=== PATIENT | male | born 1970 | race Caucasian/White ===

== ENCOUNTER 2018-10-08 17:44 | Emergency (ER) | payer BC ==
[2018-10-08] MEDS ORDERED: ASPIRIN 81 MG TABLET, CHEWABLE PO ONE ×2 (18:14→18:48)
[2018-10-08] MEDS ORDERED: ONDANSETRON HCL INJ/PF 4 MG/2 ML SDV IV ONE (18:15)
[2018-10-08] MEDS ORDERED: NORMAL SALINE 1000 ML 1,000 ML IV ONE (18:15)
[2018-10-08] MEDS ORDERED: MORPHINE SULFATE 10 MG/ML INJ IV ONE (18:15)
--- NOTE | 2018-10-08 18:17 | ER Document Report ---
ED Medical Screen (RME) - General Chief Complaint: Breathing Difficulty Stated Complaint: SHORTNESS OF BREATH, CHEST UNEASY FEELING Time Seen by Provider: 10/08/18 18:08 Mode of Arrival: Ambulatory Information source: Patient Notes: 48-year-old's male presents emergency department with complaints of nausea, vomiting, right-sided abdominal pain. Patient states he has a history of ETOH abuse. He stopped drinking from until Tuesday. He consumed alcohol on Tuesday. He states that he drank a large amount and stopped on . He states that he then went into withdrawals. He states that he had the DTs , Tuesday, Tuesday. Patient states that today he is only has nausea. He denies any vomiting, diarrhea, constipation. He states that when he arrived in the emergency department the walk from the parking lot to triage caused him to feel short of breath and have chest pain. He states that he is having a dull ache in the left chest. He states that it radiates to the armpit. He took 2 nitro and this helped with the pain. He has a history of CAD with stent placement. I have greeted and performed a rapid initial assessment of this patient. A comprehensive ED assessment and evaluation of the patient, analysis of test results and completion of the medical decision making process will be conducted by additional ED providers. PHYSICAL EXAMINATION: GENERAL: Ill appearing. HEAD: Atraumatic, normocephalic. EYES: Pupils equal round extraocular movements intact, conjunctiva are normal. ENT: Nares patent NECK: Normal range of motion LUNGS: No respiratory distress Musculoskeletal: Normal range of motion NEUROLOGICAL: Normal speech, normal gait. TRAVEL OUTSIDE OF THE [place] IN LAST 30 DAYS: No - Related Data Allergies/Adverse Reactions: No Known Allergies Allergy (Unverified 10/08/18 17:48) Physical Exam - Vital signs Vitals: Temp Pulse Resp BP Pulse Ox 98.1 F 95 16 177/99 H 100 10/08/18 18:03 10/08/18 18:03 10/08/18 18:03 10/08/18 18:03 10/08/18 18:03 Course - Vital Signs Vital signs: Temp Pulse Resp BP Pulse Ox 98.1 F 95 16 177/99 H 100 10/08/18 18:03 10/08/18 18:03 10/08/18 18:03 10/08/18 18:06 10/08/18 18:03
--- NOTE | 2018-10-08 18:53 | ER Document Report ---
ED Medical Screen (RME) - General Chief Complaint: Breathing Difficulty Stated Complaint: SHORTNESS OF BREATH, CHEST UNEASY FEELING Time Seen by Provider: 10/08/18 18:08 Mode of Arrival: Ambulatory Information source: Patient Notes: 48-year-old male presents emergency department with complaints of shortness of breath and chest pain. Patient states that he is in town from [place] visiting his daughter who just gave . He states that he took a 12-hour car ride a week ago to arrive here. He states that today he began having some shortness of breath, diaphoresis, and "chest stinging" after giving himself a testosterone injection. He gives them to himself once a week. He feels more stressed than usual because there is a lot of family around. There is been a lot of conflicts. Patient has a history of diabetes but denies any hypertension, hyperlipidemia, coronary artery disease. He does have a family history of coronary artery disease. Patient states that his primary care physician wants him to get stress test. I have greeted and performed a rapid initial assessment of this patient. A comprehensive ED assessment and evaluation of the patient, analysis of test results and completion of the medical decision making process will be conducted by additional ED providers. PHYSICAL EXAMINATION: GENERAL: Well-appearing HEAD: Atraumatic, normocephalic. EYES: Pupils equal round extraocular movements intact, conjunctiva are normal. ENT: Nares patent NECK: Normal range of motion LUNGS: No respiratory distress Musculoskeletal: Normal range of motion NEUROLOGICAL: Normal speech, normal gait. PSYCH: Normal mood, normal affect. SKIN: Warm, Dry, normal turgor, no rashes or lesions noted. TRAVEL OUTSIDE OF THE [place] IN LAST 30 DAYS: No - Related Data Allergies/Adverse Reactions: No Known Allergies Allergy (Unverified 10/08/18 17:48) Physical Exam - Vital signs Vitals: Temp Pulse Resp BP Pulse Ox 98.1 F 95 16 177/99 H 100 10/08/18 18:03 10/08/18 18:03 10/08/18 18:03 10/08/18 18:03 10/08/18 18:03 Course - Vital Signs Vital signs: Temp Pulse Resp BP Pulse Ox 98.1 F 95 16 177/99 H 100 10/08/18 18:03 10/08/18 18:03 10/08/18 18:03 10/08/18 18:06 10/08/18 18:03
[2018-10-08 19:08] LABS: ABSOLUTE BASOPHILS # (AUTO) 0.1 10^3/uL (0.0-0.2); ABSOLUTE EOSINOPHILS # (AUTO) 0.3 10^3/uL (0.0-0.6); ABSOLUTE LYMPHOCYTES (AUTO) 2.7 10^3/uL (0.5-4.7); ABSOLUTE MONOCYTES (AUTO) 0.9 10^3/uL (0.1-1.4); EOSINOPHILS % (AUTO) 2.8 % (0-6); HEMATOCRIT 46.1 % (37.9-51.0); HEMOGLOBIN 15.9 g/dL (13.5-17.0); LYMPHOCYTES % (AUTO) 27.2 % (13-45); MEAN CORPUSCULAR HEMOGLOBIN 31.2 pg (27.0-33.4); MEAN CORPUSCULAR HGB CONC 34.6 g/dL (32.0-36.0); MEAN CORPUSCULAR VOLUME 90 fl (80-97); MONOCYTES % (AUTO) 9.2 % (3-13); PLATELET COUNT 229 10^3/uL (150-450); RED CELL DISTRIBUTION WIDTH 13.5 % (11.5-14.0); SEGMENTED NEUTROPHILS % (AUTO) 59.8 % (42-78); TOTAL CELLS COUNTED % (AUTO) 100 %
[2018-10-08 19:29] LABS: ALANINE AMINOTRANSFERASE 47 U/L (21-72); ALBUMIN 4.2 g/dL (3.5-5.0); ALKALINE PHOSPHATASE 74 U/L (38-126); ANION GAP 9 (5-19); ASPARTATE AMINO TRANSFERASE 40 U/L (17-59); BILIRUBIN,DIRECT 0.2 mg/dL (0.0-0.4); BILIRUBIN,TOTAL 0.6 mg/dL (0.2-1.3); BLOOD UREA NITROGEN 13 mg/dL (7-20); CALCIUM 9.4 mg/dL (8.4-10.2); CARBON DIOXIDE 31 mmol/L (22-30); CHLORIDE 100 mmol/L (98-107); GLUCOSE 157 mg/dL (75-110); POTASSIUM 4.3 mmol/L (3.6-5.0); SODIUM 139.7 mmol/L (137-145); TOTAL PROTEIN 7.3 g/dL (6.3-8.2)
--- NOTE | 2018-10-08 19:35 | ER Document Report ---
ED General - General Chief Complaint: Breathing Difficulty Stated Complaint: SHORTNESS OF BREATH, CHEST UNEASY FEELING Time Seen by Provider: 10/08/18 18:08 Mode of Arrival: Ambulatory Notes: Patient is a 48-year-old male that comes to the emergency department for chief complaint of shortness of breath and chest pain. He states that he has been having more noticeable shortness of breath for the past couple of days i ntermittently, he states that he had a stinging sensation over the left mid to right chest after he took his testosterone shot, he states that he also has developed heartburn. He denies fever or chills, he did travel long distance 1 week ago, lives in [place], came here for family. Denies any new lower extremity swelling, denies history of blood clot, denies smoking, denies family history of blood clot. He states he has not taken his insulin over the past 2 days, he has insulin-dependent type 2 diabetes, he is also been out of his current medication omeprazole. Positive family history of CAD, none personally, he smokes marijuana but denies any other street drugs or history of street drug s, he states he had a negative stress test 2 years ago. TRAVEL OUTSIDE OF THE [place] IN LAST 30 DAYS: No - Related Data Allergies/Adverse Reactions: No Known Allergies Allergy (Unverified 10/08/18 17:48) Past Medical History - General Information source: Patient - Social History Smoking Status: Former Smoker Chew tobacco use (# tins/day): No Frequency of alcohol use: Rare Drug Abuse: None Lives with: Family Family History: Reviewed & Not Pertinent Patient has suicidal ideation: No Patient has homicidal ideation: No Endocrine Medical History: Reports: Hx Diabetes Mellitus Type 2 - Insulin Dependent-humalog and long acting Renal/ Medical History: Denies: Hx Peritoneal Dialysis Musculoskeletal Medical History: Reports Hx Arthritis - arthritis Past Surgical History: Reports: Hx Orthopedic Surgery - left leg, back - Immunizations Immunizations up to date: Yes Hx Diphtheria, Pertussis, Tetanus Vaccination: Yes Review of Systems - Review of Systems Constitutional: No symptoms reported EENT: No symptoms reported Cardiovascular: See HPI Respiratory: See HPI Gastrointestinal: See HPI Genitourinary: No symptoms reported Male Genitourinary: No symptoms reported Musculoskeletal: No symptoms reported Skin: No symptoms reported Hematologic/Lymphatic: No symptoms reported Neurological/Psychological: No symptoms reported Physical Exam - Vital signs Vitals: Temp Pulse Resp BP Pulse Ox 98.1 F 95 16 177/99 H 100 10/08/18 18:03 10/08/18 18:03 10/08/18 18:03 10/08/18 18:03 10/08/18 18:03 - Notes Notes: GENERAL: Alert, interacts well. No acute distress. HEAD: Normocephalic, atraumatic. EYES: Pupils equal, round, and reactive to light. Extraocular movements intact. ENT: Oral mucosa moist, tongue midline. Oropharynx unremarkable. Airway patent. Nares patent, no nasal septal hematoma, TM's intact. NECK: Full range of motion. Supple. Trachea midline. LUNGS: Clear to auscultation bilaterally, no wheezes, rales, or rhonchi. No respiratory distress. HEART: Regular rate and rhythm. No murmur ABDOMEN: Soft, non-tender. Non-distended. Bowel sounds present in all 4 quadrants. GENITOURINARY: Deferred EXTREMITIES: Moves all 4 extremities spontaneously. No edema, normal radial and dorsalis pedis pulses bilaterally. No cyanosis. Appears to have some pain in his legs when he ambulates, reportedly chronic. BACK: no cervical, thoracic, lumbar midline tenderness. No saddle anesthesia, normal distal neurovascular exam. NEUROLOGICAL: Alert and oriented x3. Normal speech. [cranial nerves II through XII grossly intact]. PSYCH: Normal affect, normal mood. SKIN: Warm, dry, normal turgor. No rashes or lesions noted. Course - Re-evaluation Re-evalutation: EKG sinus rhythm at a rate of 98, CO interval is increased at 216, QTC is 424, no T wave inversions or ST segment changes in consecutive leads. Initial troponin is negative. Very atypical reported pain. Chest x-ray unremarkable. CBC unremarkable. Chemistry unremarkable including glucose of only 150s despite patient stating he was not taking his insulin. He clarifies that he takes prednisone frequently for his joints and when he takes this he needs the insulin. Patient complaining of heartburn, he was medicated with Pepcid and Maalox, this resolved. Heart score is 3 based on his risk factors and age. D-dimer is elevated at 4, he has had recent travel, this was discussed with patient, CTA was performed but fortunately was negative for PE, dissection, or concerning finding. Discussed with patient. I discussed potential admission for cardiac rule out, patient declines, states that he will be going home very soon, he wants his provider to have this done at home. He agrees to second troponin and discharged with return precautions. This will be performed. Patient call me back to the room. He has a ride here and they are ready to leave. He is requesting to be discharged. Second troponin is not been completed yet. Patient asymptomatic at this time, symptoms did start over 8 ho urs ago, patient ambulated without any dyspnea on my observation. He states that he absolutely will follow closely with his strand galvanizer and he will return if he worsens in any way. Patient discharged with return precautions. - Vital Signs Vital signs: Temp Pulse Resp BP Pulse Ox 98.1 F 95 18 143/80 H 97 10/08/18 18:03 10/08/18 18:03 10/08/18 21:01 10/08/18 21:01 10/08/18 21:01 - Laboratory Result Diagrams: 10/08/18 18:57 10/08/18 18:57 Laboratory results interpreted by me: 10/08/18 10/08/18 10/08/18 18:31 18:57 18:57 D-Dimer 4.70 H Carbon Dioxide 31 H Glucose 157 H POC Glucose 158 H Discharge - Discharge Clinical Impression: Shortness of breath Chest pain Qualifiers: Chest pain type: unspecified Qualified Code(s): R07.9 - Chest pain, unspecified Condition: Stable Disposition: HOME, SELF-CARE Additional Instructions: The CTA of your chest does not show a blood clot. Your remaining workup does not show any concerning findings at this time. However please follow-up closely with your strand galvanizer back home within the next few days as discussed. Return if you worsen including pain in your chest, difficulty breathing, passing out, or any other concerning or worsening symptoms.
[2018-10-08] MEDS ORDERED: FAMOTIDINE 20 MG TABLET PO ONE (19:38)
[2018-10-08] MEDS ORDERED: MAG HYDROX/AL HYDROX/SIMETH SUSP 30 ML UDCUP PO ONE (19:38)
--- NOTE | 2018-10-08 19:52 | RADIOLOGY REPORT (SQ) ---
EXAM DESCRIPTION: CHEST SINGLE VIEW COMPLETED DATE/TIME: 10/08/2018 7:09 pm REASON FOR STUDY: shortness of breath COMPARISON: None. EXAM PARAMETERS: NUMBER OF VIEWS: One view. TECHNIQUE: Single frontal radiographic view of the chest acquired. RADIATION DOSE: NA LIMITATIONS: None. FINDINGS: LUNGS AND PLEURA: No opacities, masses or pneumothorax. No pleural effusion. MEDIASTINUM AND HILAR STRUCTURES: No masses. Contour normal. HEART AND VASCULAR STRUCTURES: Heart normal in size. Normal vasculature. BONES: No acute findings. HARDWARE: None in the chest. OTHER: No other significant finding. IMPRESSION: NO ACUTE RADIOGRAPHIC FINDING IN THE CHEST. TECHNICAL DOCUMENTATION: JOB ID: [id number] [place]-72 2010 [employer]- All Rights Reserved Reading location - IP/workstation name: [email or web address]
--- NOTE | 2018-10-08 21:09 | RADIOLOGY REPORT (SQ) ---
EXAM DESCRIPTION: CT CHEST ANGIOGRAPHY WITHOUT THEN WITH IV CONTRAST COMPLETED DATE/TME: 10/08/2018 20:22 CLINICAL HISTORY: 48 years, Male, chest pain, SOB, recent travel, elevated d-dimer, COMPARISON: None. TECHNIQUE: [id number] Images stored on PACS. All CT scanners at this facility use dose modulation, iterative reconstruction, and/or weight based dosing when appropriate to reduce radiation dose to as low as reasonably achievable (ALARA). Axial CTA images were obtained with coronal and sagittal MIPS reconstructions. [facility]: Dose Right [facility]: CareDose [facility]: Dose Right [facility]: Teradose 4D [facility]: [employer] LIMITATIONS: None. FINDINGS: The mediastinal vasculature enhances normally. No intraluminal filling defect to suggest pulmonary embolus. Negative for thoracic aortic aneurysm or dissection. No mediastinal or hilar adenopathy. Scattered nonenlarged mediastinal nodes are present. Limited evaluation of the upper abdomen shows fatty infiltrative change to the liver. Osseous structures are grossly intact. No pneumothorax. Visualized airways are patent. Lungs are clear. IMPRESSION: Negative for acute intrathoracic process. TECHNICAL DOCUMENTATION: Quality ID # [id number]: Final reports with documentation of one or more dose reduction techniques (e.g., Automated exposure control, adjustment of the mA and/or kV according to patient size, use of iterative reconstruction technique) copyright 2010 [employer]- All Rights Reserved
[2018-10-08 22:17] VITALS: BP 143/80
--- NOTE | 2018-10-08 23:57 | EKG REPORT ---
SEVERITY:- ABNORMAL ECG - SINUS RHYTHM FIRST DEGREE AV BLOCK : Confirmed by: Shree Briseno 08-Oct-2018 23:57:05
== END 2018-10-08 22:26 | disposition home or self-care (01) ==
LOC: ER 17:44
DX: R06.02 Shortness of breath (principal); R12 Heartburn; T47.1X6A Underdosing of other antacids and anti-gastric-secretion drugs, initial encounter; Z91.128 Patient's intentional underdosing of medication regimen for other reason; Z91.14 Patient's other noncompliance with medication regimen; E11.9 Type 2 diabetes mellitus without complications; T38.3X6A Underdosing of insulin and oral hypoglycemic [antidiabetic] drugs, initial encounter; R79.1 Abnormal coagulation profile; R07.89 Other chest pain; Z82.49 Family history of ischemic heart disease and other diseases of the circulatory system; Z87.891 Personal history of nicotine dependence
CPT/HCPCS: 93005; 99285; 96360; 36415; 82962; 85025; 80053; 84484; 85379; 71045; 71275; 93010; J7030